=== PATIENT | male | born 2000 | race African-American/Black ===

== ENCOUNTER 2021-01-25 08:15 | Emergency (ER) | payer MEDICAID, OTHER ==
[~2021-01-25] VITALS: Ht 170.2 cm; Wt 79.8 kg
[2021-01-25 08:27] VITALS: BP 126/77
[2021-01-25] MEDS ORDERED: LIDOCAINE 1% HCL (LOCAL ANESTH.) INJ 20ML MDV IJ ONE (08:45)
[2021-01-25] MEDS ORDERED: BACITRACIN TOP OINT 1 UD PKG TOP ONE (08:45)
[2021-01-25] MEDS ORDERED: traMADol HCL 50 MG TAB PO ONE (08:45)
== END 2021-01-25 09:55 | disposition home or self-care (01) ==
LOC: ER 08:15 → EDBD 08:15 → ER 09:55
DX: S51.811A Laceration without foreign body of right forearm, initial encounter (principal); J45.909 Unspecified asthma, uncomplicated; X99.1XXA Assault by knife, initial encounter; Y93.89 Activity, other specified; Y92.89 Other specified places as the place of occurrence of the external cause; Y99.8 Other external cause status
CPT/HCPCS: 12002; 73090; 99283; J2001